=== PATIENT | male | born 1990 | race Caucasian/White ===

== ENCOUNTER 2021-12-07 19:13 | Emergency (ER) | payer OTHER, SELFPAY ==
[2021-12-07 19:32] VITALS: BP 141/84; PULSE 84; RESP 20; TEMP 36.6; O2SAT 97; BMI 22.2
--- NOTE | 2021-12-07 20:12 | DI.RAD.S_ITS ---
PROCEDURE: XR CHEST 2V INDICATIONS: chest pain/possible rib frx TECHNIQUE: 2 views of the chest were acquired. COMPARISON: None. FINDINGS: Surgical changes and devices: None. Lungs and pleura: Lungs are clear. No pleural effusions or pneumothorax. Mediastinum: Mediastinal contours are normal. Heart size is normal. Bones and chest wall: No suspicious bony abnormalities. Soft tissues appear unremarkable. IMPRESSION: No trauma found, no pneumothorax identified. Dictated by: Orlin Cadena M.D. on 12/07/2021 at 20:36 Approved by: Orlin Cadena M.D. on 12/07/2021 at 20:36
--- NOTE | 2021-12-07 21:36 | ED.CHESTPAIN ---
HPI - Chest Pain General Chief Complaint: Chest Pain Stated Complaint: Right side lung pain, difficulty breathing Time Seen by Provider: 12/07/21 21:07 Source: patient Mode of arrival: Ambulatory Limitations: no limitations History of Present Illness HPI narrative: Patient is a 31-year-old male who is here for evaluation of right-sided lung discomfort. He states that it specifically hurts when he touches the area and takes a deep breath and moves. His not remember a specific incident but it did seem to start occurring after he was moving a large object within the past couple days. He was seen by paramedics who did an EKG and told him that everything looked unremarkable although he was continued to have symptoms so he came to the emergency department for evaluation. Related Data Home Medications Medication Instructions Recorded Confirmed No Known Home Medications 09/02/21 09/02/21 Allergies Allergy/AdvReac Type Severity Reaction Status Date / Time No Known Drug Allergies Allergy Unverified 09/02/21 09:26 Review of Systems Constitutional Constitutional: Denies fever(s) Cardiovascular Cardiovascular: Reports system reviewed and no additional complaints, except as documented Respiratory Respiratory: Reports system reviewed and no additional complaints, except as documented Integumentary/Breasts Skin/Breast: Reports system reviewed and no additional complaints, except as documented Hematologic/Lymphatic On Anticoagulants: No Patient History Social History lives independently: Yes Exam Initial Vital Signs Initial Vital Signs: Vital Signs Temperature 98 F 12/07/21 19:32 Pulse Rate 84 12/07/21 19:32 Respiratory Rate 20 12/07/21 19:32 Blood Pressure 141/84 H 12/07/21 19:32 Pulse Oximetry 97 12/07/21 19:32 Oxygen Delivery Method 12/07/21 19:32 Const General: cooperative, comfortable and well developed HENMT Head: normal to inspection and normocephalic Chest Other: Discomfort over the right-sided pectoralis muscle. Skin General: no rashes or lesions noted Neuro General: patient alert, patient awake and moves all extremities Extrem General: normal to inspection and capillary refill normal Course Orders Ordered: ED Orders 12/07/21 20:12 Chest [XR chest 2V] Stat Vital Signs Vital signs: Vital Signs - 8 hr 12/07/21 19:32 Temperature 98 F Pulse Rate 84 Respiratory Rate 20 Blood Pressure 141/84 H Pulse Oximetry 97 Oxygen Delivery Method Room Air MDM - Chest Pain Imaging Data Chest x-ray: Radiologist's Impression: [address] [address] XRay Report Signed Patient: Devang Delgado MR#: [id number] : 1990 Acct:[id number] Age/Sex: 31 / M Date of Service: 12/07/21 Loc: ED Accession Number: [id number] ?? Procedure: XR chest 2V Ordering Provider: Cornell Joseph D.O. PROCEDURE:? XR CHEST 2V ? INDICATIONS:? chest pain/possible rib frx ? TECHNIQUE:? 2 views of the chest were acquired.? ? COMPARISON:? None. ? FINDINGS:? ? Surgical changes and devices:? None.? ? Lungs and pleura:? Lungs are clear.? No pleural effusions or pneumothorax.? ? Mediastinum:? Mediastinal contours are normal.? Heart size is normal.? ? Bones and chest wall:? No suspicious bony abnormalities.? Soft tissues appear unremarkable.? ? IMPRESSION:? No trauma found, no pneumothorax identified. ? ? Dictated by: Orlin Cadena M.D. on 12/07/2021 at 20:36 ? ? Approved by: Orlin Cadena M.D. on 12/07/2021 at 20:36? [facility] Narrative Medical decision making narrative: He has reproducible right-sided chest wall discomfort. His chest x-ray is unremarkable. Do suspect musculoskeletal given his presenting symptoms. No fevers. Did discuss this with the patient. He is given return precautions. He expressed understanding and agreement. Discharge Plan Departure Patient Disposition: Home Clinical Impression: Anterior chest wall pain Activity Restrictions/Additional Instructions: Your chest x-ray is normal. Your lungs are clear. This is not your heart. I suspect that this is muscular given your presentation. Contact your primary doctor for a follow-up. Return to the emergency department for any new or worsening symptoms. Prescriptions: No Action No Known Home Medications Referrals: Amos Hall MD [Primary Care Provider] - Visit Report Forms: Patient Portal/API
== END 2021-12-07 21:46 | disposition home or self-care (01) ==
PROVIDERS: Emergency Provider Emergency Medicine; PCP Family Medicine
DX: R07.89 Other chest pain (principal)
CPT/HCPCS: 71046; 99281; 99283